=== PATIENT | male | born 1990 | race Caucasian/White ===

== ENCOUNTER 2017-05-23 11:53 | Emergency (ER) | payer BC, MEDICAID ==
[~2017-05-23] VITALS: Ht 157.5 cm; Wt 69.0 kg
[~2017-05-23 11:53] MED LIST: PHEN-538 PO; TRIA15CR55 TOP
[2017-05-23 11:57] VITALS: Ht 157.5 cm; Wt 69.0 kg
[2017-05-23] MEDS ORDERED: ACET325T33 PO (13:05)
[2017-05-23] MEDS ORDERED: BISM-34 PO (13:05)
--- NOTE | 2017-05-23 13:17 | ERA ---
ER Documentation Chief Complaint Date/Time DATE: 05/23/17 TIME: 13:07 Chief Complaint Complains of HPI 26-year-old Frisian-speaking male presenting with a chief complaint of diarrhea for the past 1-2 days with upset stomach for the past 3 days. Patient has taken [place] without relief. States that is also had a mild fever but has not taken his temperature. No aggravating or alleviating factors described. No previous symptoms like this before. Denies any known environmental causes including undercooked or new foods. No specific characteristics given for the diarrhea. Patient has no other complaints and describes no other associated manifestations. Nursing notes have been reviewed and are consistent with history given. ROS All systems reviewed and are negative except as per history of present illness. Medications Home Meds Active Scripts Acetaminophen* (Tylenol*) 325 Mg Tablet, 1 TAB PO Q6 Y for PAIN AND OR ELEVATED TEMP, #20 TAB Prov:MILAN GREEN PA-C 05/23/17 Bismuth Subsalicylate* (Bismuth Subsalicylate*) 262 Mg/15 Ml Oral.susp, 15 ML PO Q6 Y for DIARRHEA for 3 Days, EA Prov:MILAN GREEN PA-C 05/23/17 Triamcinolone Acetonide* (Kenalog*) 0.1%-15GM Cr, 1 APPLIC TOP TID for 7 Days, # 1 TUB Prov:MILAN GAN MD 06/12/16 Phenazopyridine Hcl* (Pyridium*) 200 Mg Tab, 200 MG PO TID Y for URINARY PAIN, # 6 TAB Prov:CODY MAN NP 05/21/16 Reported Medications [none] Unknown Strength No Conflict Check 05/21/16 Allergies Allergies: Coded Allergies: No Known Allergy (Unverified , 05/21/16) PMhx/Soc History of Surgery: No Anesthesia Reaction: No Hx Neurological Disorder: No Hx Respiratory Disorders: No Hx Cardiac Disorders: No Hx Psychiatric Problems: No Hx Miscellaneous Medical Probl: No Hx Alcohol Use: No Hx Substance Use: No Hx Tobacco Use: No Physical Exam Vitals Vital Signs Date Time Temp Pulse Resp B/P Pulse Ox O2 Delivery O2 Flow Rate FiO2 05/23/17 11:57 98.3 107 20 127/66 98 Physical Exam Const: Well-appearing 26-year-old male in no acute distress sitting in the chair upright on initial presentation Abd: Soft with no rebound or guarding. No tenderness elicited with palpation. Normal bowl sounds auscultated in all 4 quadrants. No findings with percussion. No hepatomegaly, splenomegaly, enlarged abdominal aorta appreciated upon palpation. Negative Rovsings, psoas, obturator and [place] signs. No McBurneys point tenderness. Head: Atraumatic Eyes: Normal Conjunctiva, PERRLA, EOMI bilaterally. ENT: Normal External Ears, Nose and Mouth. Neck: No lymphadenopathy or other masses palpated. Full range of motion..~ No meningismus. Resp: Clear to auscultation bilaterally Cardio: Regular rate and rhythm, no murmurs Skin: No petechiae or rashes Back: No midline or flank tenderness Ext: No cyanosis, or edema Neur: Awake and alert Psych: Normal Mood and Affect Procedures/MDM Patient was evaluated and worked up for abdominal discomfort and diarrhea as described in history and physical examination. Most likely diagnosis is infectious, noninvasive diarrhea from unknown cause versus diarrhea of unknown etiology. At this time I do not suspect appendicitis, intestinal ischemia, perforated viscus, pancreatitis, cholangitis, cholelithiasis, mechanical obstruction, AAA, UTI epididymitis, prostatitis, or other acute abdomen/ systemic illness. The patient is well appearing, and tolerates PO. I have spoke with the patient regarding their condition and future management including the necessity to follow-up in 12 hours. They have verbally responded that they understand their status and treatment plan. The patients vitals are stable, and their current condition is appropriate for discharge. The patient will be given discharge instructions with return precautions. Discharge medications: Bismuth subsalicylate p.o. as needed 3 days. Brody the nurse helped with translation Departure Diagnosis: Primary Impression: Diarrhea Qualified Code: R19.7 - Diarrhea, unspecified type Condition: Stable Patient Instructions: Abdominal Pain, Unkown Cause, (Male) [facility] Usted se miranda hecho un examen mdico de control que le indica que no est en mary alice condicin que requiera tratamiento urgente en el Departamento de Emergencia. Un estudio ms profundo y el tratamiento de watts condicin pueden esperar sin ningn riesgo hasta que usted sea atendida/o en el consultorio de watts mdico o mary alice cl jean pierre. Es responsabilidad suya arreglar mary alice nathen para el seguimiento del sheila. MANEJO DE CONDICIONES NO URGENTES EN EL FUTURO 1) Si usted tiene un mdico de atencin primaria: Usted debera llamar a watts mdico de atencin primaria antes de venir al departamento de emergencia. Despus de las horas de consultorio, watts doctor o watts asociado/a est disponible por telfono. El mdico o enfermero de jorge en el servicio telefnico puede asesorarle por gricelda medio para atender el problema, o sheila contrario se puede programar mary alice nathen. 2) Si usted no tiene un mdico de atencin primaria: Llame al mdico o clnica de referencia que aparece abajo mannie las horas de consultorio para hacer mary alice nathen para que le vean. CLINICAS: [facility] [phone] [address] [facility] [phone] [facility] [phone] [address] [facility] [facility] [phone] [address] [facility] [facility] [phone] [address] [facility]. [phone] [address] [facility]. [facility] YOU HAVE RECEIVED A MEDICAL SCREENING EXAM AND THE RESULTS INDICATE THAT YOU DO NOT HAVE A CONDITION THAT REQUIRES URGENT TREATMENT IN THE EMERGENCY DEPARTMENT. FURTHER EVALUATION AND TREATMENT OF YOUR CONDITION CAN WAIT UNTIL YOU ARE SEEN IN YOUR DOCTORS OFFICE WITHIN THE NEXT 1-2 DAYS. IT IS YOUR RESPONSIBILITY TO MAKE AN APPOINTMENT FOR FOLOW-UP CARE. IF YOU HAVE A PRIMARY DOCTOR --you should call your primary doctor and schedule an appointment IF YOU DO NOT HAVE A PRIMARY DOCTOR YOU CAN CALL OUR PHYSICIAN REFERRAL HOTLINE AT IF YOU CAN NOT AFFORD TO SEE A PHYSICIAN YOU CAN CHOSE FROM THE FOLLOWING [facility] [address] [facility] [address] [facility] [facility] [address] [facility] [facility] [address] [facility]. [facility] [address] [facility]. [facility]. [address] [place] Additional Instructions: Jeremy un seguimiento con watts PCP dentro de los prximos 1-3 kemp para mary alice evaluaci n ms completa y mary alice posible derivacin a un especialista. Devuelva el departamento de emergencia inmediatamente si los sntomas empeoran o cambian. Si tiene alguna pregunta con respecto a los medicamentos, consulte con watts farmac utico o con nosotros antes de salir. Si se producen reacciones adversas mientras leann kimberly medicamentos, suspenda el tratamiento y regrese inmediatamente al servicio de urgencias. [place] kimberly medicamentos segn las indicaciones y complete el curso completo del tratamiento. MILAN GREEN PA-C May 23, 2017 13:17
== END 2017-05-23 14:39 | disposition home or self-care (01) ==
LOC: FTE 11:53
DX: R19.7 Diarrhea, unspecified (principal)
CPT/HCPCS: 99283